=== PATIENT | female | born 1985 | race Caucasian/White ===

== ENCOUNTER 2023-04-21 20:19 | Emergency (ER) | payer SELFPAY ==
[~2023-04-21] VITALS: Ht 162.6 cm; Wt 65.0 kg
[2023-04-21 21:24] LABS: Monocytes # (auto) 0.2 10 ^3/uL (0-1.3); Red Cell Distribution Width 12.3 % (11.8-14.3); White Blood Cell 10.5 10^3/uL (4.4-10.8)
[2023-04-21 21:25] LABS: Basophils # (auto) 0 10 ^3/uL (0-0.2); Basophils % (auto) 0.1 % (0.0-2.0); Eosinophils # (auto) 0 10 ^3/uL (0-0.8); Hematocrit 37.8 % (36.0-46.0); Lymphocytes # (auto) 0.8 10 ^3/uL (0.4-5.4); Lymphocytes % (auto) 7.3 % (10.0-50.0); Mean Corpuscular Hemoglobin 32.3 pg (28.0-32.0); Mean Corpuscular Hgb Conc. 34.4 g/dL (32.0-36.0); Mean Corpuscular Volume 93.8 fL (80.0-100.0); Monocytes % (auto) 1.8 % (0.0-12.0); Neutrophils # (auto) 9.6 10 ^3/uL (1.6-8.6); Neutrophils % (auto) 90.8 % (37.0-80.0); Red Blood Cells 4.03 10^6/uL (4.0-5.20)
[2023-04-21 21:44] LABS: Calcium 9.6 mg/dL (8.5-10.1); Potassium 3.1 mmol/L (3.5-5.1)
[2023-04-21 21:47] LABS: BUN/Creatinine Ratio 17.4 (10.0-20.0); Bilirubin, Total 0.4 mg/dL (0.2-1.0)
[2023-04-21] MEDS ORDERED: MORPHINE SULFATE INJ 2 MG/ml SYRG IM ONE (22:15)
[2023-04-21] MEDS ORDERED: ONDANSETRON ODT 4 MG TAB PO ONE (23:00)
[2023-04-21 23:15] LABS: Urine Bacteria NONE SEEN /hpf (None Seen); Urine Blood Negative /uL (Negative); Urine Budding Yeast OCCASIONAL /hpf (None Seen); Urine Mucus FEW (None Seen); Urine Specific Gravity 1.037 (1.001-1.035); Urine WBC 1 /hpf (0 - 5)
[2023-04-21 23:32] VITALS: BP 62/96
[2023-04-21] MEDS ORDERED: SODIUM CHLORIDE 0.9% 2,000 ML IV ONE (23:45)
== END 2023-04-22 00:16 | disposition left against medical advice (07) ==
LOC: EDBD 20:19 → ER 20:24
DX: K29.70 Gastritis, unspecified, without bleeding (principal); E10.65 Type 1 diabetes mellitus with hyperglycemia; R10.2 Pelvic and perineal pain
CPT/HCPCS: 36415; 80053; 81001; 83690; 84702; 85025; 96372; 99285; J2270; Q0162